=== PATIENT | female | born 1995 | race African-American/Black ===

== ENCOUNTER 2019-10-03 20:20 | Emergency (ER) | payer MEDICAID ==
[~2019-10-03] VITALS: Ht 165.1 cm; Wt 136.1 kg
[2019-10-03 20:55] LABS: Urine Bacteria FEW /hpf (None Seen); Urine Blood 3+ /uL (Negative); Urine Specific Gravity 1.022 (1.001-1.035); Urine WBC 19 /hpf (0 - 5)
[2019-10-03 22:30] LABS: Basophils # (auto) 0.1 uL; Basophils % (auto) 1.2 % (0.0-2.0); Lymphocytes # (auto) 2.2 uL; Monocytes # (auto) 0.4 uL; White Blood Cell 7.5 10^3/uL (4.4-10.8)
[2019-10-03 22:33] LABS: Eosinophils # (auto) 0.2 uL; Eosinophils % (auto) 2.3 % (0.0-7.0); Hematocrit 35.4 % (36.0-46.0); Hemoglobin 11.8 g/dL (12.2-16.2); Lymphocytes % (auto) 29.5 % (10.0-50.0); Mean Corpuscular Hemoglobin 24.9 pg (28.0-32.0); Mean Corpuscular Hgb Conc. 33.2 g/dL (32.0-36.0); Mean Corpuscular Volume 74.9 fL (80.0-100.0); Monocytes % (auto) 5.4 % (0.0-12.0); Neutrophils # (auto) 4.6 uL; Neutrophils % (auto) 61.6 % (37.0-80.0); Nucleated Red Blood Cells % 0.1 %; Platelet Count (auto) 243 10^3/uL (140-450); Red Blood Cells 4.73 10^6/uL (4.0-5.20); Red Cell Distribution Width 15.1 % (11.8-14.3)
[2019-10-03 22:55] LABS: INR 0.94 (0.9-1.15); Partial Thromboplastin Time 29.9 sec (23.64-32.05)
[2019-10-03 23:16] LABS: Albumin 3.6 g/dL (3.4-5.0); Calcium 8.6 mg/dL (8.5-10.1); Potassium 4.2 mmol/L (3.5-5.1)
[2019-10-03 23:19] LABS: BUN/Creatinine Ratio 18.6; Bilirubin, Total 0.4 mg/dL (0.2-1.0)
[2019-10-04 00:05] VITALS: BP 136/90
== END 2019-10-04 02:00 | disposition home or self-care (01) ==
LOC: ER 20:22
DX: N93.8 Other specified abnormal uterine and vaginal bleeding (principal); M72.2 Plantar fascial fibromatosis; N39.0 Urinary tract infection, site not specified
CPT/HCPCS: 36415; 73630; 76856; 80053; 81001; 84702; 85025; 85610; 85730; 86850; 86900; 86901

== ENCOUNTER 2020-01-08 17:48 | Emergency (ER) | payer MEDICAID ==
[~2020-01-08] VITALS: Ht 162.6 cm; Wt 145.1 kg
[2020-01-08] MEDS ORDERED: ALBUTEROL SULF 2.5 MG/0.5ML(0.5%) NEB SOLN NEB ONE (22:00)
[2020-01-08] MEDS ORDERED: IPRATROPIUM BROM 0.5 MG/2.5ML INH SOL NEB ONE (22:00)
[2020-01-08 22:52] VITALS: BP 146/87
== END 2020-01-08 23:09 | disposition home or self-care (01) ==
LOC: ER 17:48
DX: J20.9 Acute bronchitis, unspecified (principal); J45.909 Unspecified asthma, uncomplicated
CPT/HCPCS: 94640; 99283; J7644

== ENCOUNTER 2022-07-23 14:49 | Emergency (ER) | payer MEDICAID ==
[~2022-07-23] VITALS: Ht 165.1 cm; Wt 157.3 kg
[2022-07-23 16:29] VITALS: BP 120/78
[2022-07-23] MEDS ORDERED: KETOROLAC TROMETH 60MG/2ML VIAL IM ONE (16:45)
[2022-07-23] MEDS ORDERED: IBUP800T27 PO (17:20)
[2022-07-23] MEDS ORDERED: METH750T22 PO (17:20)
== END 2022-07-23 17:45 | disposition home or self-care (01) ==
LOC: ER 14:49
DX: S16.1XXA Strain of muscle, fascia and tendon at neck level, initial encounter (principal); S39.012A Strain of muscle, fascia and tendon of lower back, initial encounter; J45.909 Unspecified asthma, uncomplicated; X50.1XXA Overexertion from prolonged static or awkward postures, initial encounter; Y93.01 Activity, walking, marching and hiking; Y92.89 Other specified places as the place of occurrence of the external cause; Y99.8 Other external cause status
CPT/HCPCS: 96372; 99283; J1885

== ENCOUNTER 2024-03-11 13:43 | Emergency (ER) | payer MEDICAID ==
[~2024-03-11] VITALS: Ht 162.6 cm; Wt 153.3 kg
[~2024-03-11 13:43] MED LIST: IBUP-1456 PO; METH-1182 PO
[2024-03-11 14:17] LABS: Urine Bacteria None Seen /hpf (None Seen)
[2024-03-11 14:26] LABS: Urine Blood 3+ /uL (Negative); Urine Clarity Ex.Turbid (Clear); Urine Color Colorless (Yellow); Urine Mucus FEW (None Seen); Urine Protein, UAD 1+ (Negative); Urine Specific Gravity 1.023 (1.001-1.035); Urine Urobilinogen Normal (Negative); Urine WBC 109 /hpf (0 - 5); Urine pH 5.5 (5.0-9.0)
[2024-03-11 15:22] LABS: Basophils # (auto) 0.1 10 ^3/uL (0-0.2); Eosinophils # (auto) 0.1 10 ^3/uL (0-0.8); Eosinophils % (auto) 1.8 % (0.0-7.0); Hematocrit 35.5 % (36.0-46.0); Hemoglobin 11.2 g/dL (12.2-16.2); Lymphocytes # (auto) 2.2 10 ^3/uL (0.4-5.4); Lymphocytes % (auto) 33.1 % (10.0-50.0); Mean Corpuscular Hemoglobin 23.6 pg (28.0-32.0); Mean Corpuscular Hgb Conc. 31.5 g/dL (32.0-36.0); Mean Corpuscular Volume 74.9 fL (80.0-100.0); Monocytes # (auto) 0.4 10 ^3/uL (0-1.3); Monocytes % (auto) 5.6 % (0.0-12.0); Neutrophils # (auto) 3.8 10 ^3/uL (1.6-8.6); Neutrophils % (auto) 58.5 % (37.0-80.0); Nucleated Red Blood Cells % 0.1 %; Red Blood Cells 4.74 10^6/uL (4.0-5.20); Red Cell Distribution Width 15.8 % (11.8-14.3); White Blood Cell 6.5 10^3/uL (4.4-10.8)
[2024-03-11 15:39] LABS: Alanine Aminotransferase 22 U/L (7-40); Albumin 4.3 g/dL (3.2-4.8); Alkaline Phosphatase 51 U/L (46-116); Anion Gap 5 (5-15); Aspartate Aminotransferase 28 U/L (13-40); BUN/Creatinine Ratio 12.5 (10.0-20.0); Blood Urea Nitrogen 11 mg/dL (9-23); Calcium 9.5 mg/dL (8.5-10.1); Carbon Dioxide 26 mmol/L (20-30); Chloride 108 mmol/L (98-107); Glucose 86 mg/dL (74-106); Sodium 139 mmol/L (136-145)
[2024-03-11 15:40] LABS: Bilirubin, Total 0.9 mg/dL (0.2-1.0); Total Protein 7.3 g/dL (5.7-8.2)
[2024-03-11] MEDS ORDERED: NAP500T GT (18:54)
[2024-03-11] MEDS: KETOROLAC TROMETH 60MG/2ML VIAL IM ONE (19:00)
[2024-03-11 19:03] VITALS: BP 140/91; PULSE 82; RESP 18; TEMP 98.3; O2SAT 95
== END 2024-03-11 19:15 | disposition home or self-care (01) ==
LOC: ER 13:43
DX: N83.201 Unspecified ovarian cyst, right side (principal); R10.31 Right lower quadrant pain; J45.909 Unspecified asthma, uncomplicated; E07.9 Disorder of thyroid, unspecified; Z91.018 Allergy to other foods
CPT/HCPCS: 36415; 74176; 76830; 76856; 80053; 81001; 85025; 96372; 99285; J1885